=== PATIENT | male | born 1980 | race Caucasian/White ===

== ENCOUNTER 2020-01-03 09:00 | Outpatient (CLI) | payer OTHER, SELFPAY ==
[2020-01-03 09:50] LABS: Alanine Aminotransferase 15 U/L (4-50); Albumin Level 4.1 g/dL (3.5-5.1); Alkaline Phosphatase 101 U/L (38-126); Aspartate Amino Transferase 19 U/L (17-59); Bilirubin,Total 0.3 mg/dL (0.2-1.3)
== END 2020-01-03 09:01 | disposition home or self-care (01) ==
PROVIDERS: Visit Provider Internal Medicine Nephrology
DX: N18.30 Chronic kidney disease, stage 3 unspecified (principal); Q61.2 Polycystic kidney, adult type
CPT/HCPCS: 36415; 80076

== ENCOUNTER 2022-03-20 08:16 | Outpatient (CLI) | payer BC, SELFPAY ==
--- NOTE | 2022-04-01 14:52 | WPDHOMESLEEP ---
Sleep Study - Home Unattended Date of Study: 03/20/22 Ordering Provider: KARMEN Garcia Interpreting Provider: Brenda Burks, DO Home Sleep Study Type: Apnea Link Air Height: 1.96 m Weight: 113.398 kg Body Mass Index: 29.6 Neck Circumference (inches): 17 [place]: 10 Reason for Sleep Study Poor sleep Sleep History The patient is a 41-year-old male with hypertension, GERD, polycystic kidney disease, stage 3 chronic kidney disease, obesity and tobacco use that had a sleep study ordered by primary care for evaluation of sleep apnea. The patient rarely awakens from sleep short of breath. He occasionally awakens at night with heartburn, belching or cough. He frequently snores and frequently loudly enough that others complain. He rarely has trouble sleeping when he has a cold. He rarely wakes up gasping for air throughout the night. He rarely has breathing problems at night observed by himself or others. He occasionally sweats excessively at night. He occasionally has heart palpitations or irregular heartbeats during the night. He denies falling asleep during the day and while driving. He denies sleep paralysis, cataplexy and hypnagogic / hypnopompic hallucinations. He denies having trouble at school or work due to sleepiness. He denies feeling afraid of going to sleep. He rarely has nightmares and rarely remembers his dreams. He rarely has thoughts racing through his mind. He rarely feels sad, depressed or anxious. He occasionally has muscular tension and occasionally notices parts of his body jerk. He occasionally kicks during the night. He occasionally experiences crawling and aching feelings in his legs but rarely has leg pain during the night. He denies grinding his teeth during sleep and denies awakening with morning jaw pain. He is occasionally bothered by pain during the day but rarely awakened by pain during the night. He occasionally wakes up feeling stiff in the morning. He rarely wakes up with sore or achy muscles. He occasionally wakes up with pain in the neck, spine or other joints. He goes to bed at 11:00 p.m. on both weekdays and weekends. It takes him 10-15 minutes to fall asleep. He wakes up 1-2 times throughout the night to urinate. He is able to fall back asleep within 10-15 minutes. He wakes up at 6:15 a.m. on weekdays and at 7:00 a.m. on the weekends. He typically gets 8-10 hours of sleep per night. He will stay in bed for a minute after waking up in the morning. He will consume caffeinated beverages within 2 hours of bedtime. He does not engage in physical exercise before bedtime. He will watch television before falling asleep. He will take naps in afternoon or the evening but they are not refreshing. He drinks 4-5 caffeinated beverages per day. He smokes 1.5 packs of cigarettes per day. He denies alcohol and recreational drug PMFSH Past Medical History Medical History Autosomal dominant adult polycystic kidney disease Hypertension Obesity Stage 3 chronic kidney disease Tobacco use Surgical History Surgical History H/O vasectomy H/O wisdom tooth extraction Family History Family History Father Family history of brain aneurysm Other History of blood in urine Social History Social History Smoking status: Current every day smoker Alcohol intake: current Substance use: unknown Medications Home Medications Medication Instructions Recorded Confirmed Type cholecalciferol (vitamin D3) 50 50 mcg PO DAILY 01/02/22 01/30/22 History mcg (2,000 unit) capsule irbesartan 150 mg tablet 150 mg PO DAILY 01/02/22 01/30/22 History eszopiclone 2 mg tablet (Lunesta) 2 mg PO ONCE #1 tablet 01/30/22 01/30/22 Rx ezetimibe 10 mg tablet 10 mg PO DAILY #30 tabs 04/01/22 Rx Sleep Procedure This
[2022-04-01 15:01] VITALS: BMI 29.6
--- NOTE | 2022-05-29 15:42 | SLEEP ---
new calls [phone]
== END 2022-03-21 13:34 | disposition home or self-care (01) ==
LOC: ANHCSM 08:17
PROVIDERS: Visit Provider Physician Assistant
DX: G47.10 Hypersomnia, unspecified (principal); G47.9 Sleep disorder, unspecified
CPT/HCPCS: 95806

== ENCOUNTER 2022-05-22 08:17 | Outpatient (CLI) | payer BC, SELFPAY ==
--- NOTE | 2022-06-20 15:16 | WPDSLEEPSTUD ---
Sleep Study Date of Study: 05/22/22 Ordering Provider: KARMEN Garcia Interpreting Physician: Isha Ferguson MD Sleep Study Type: Polysomnogram Height: 1.96 m Weight: 113.398 kg Body Mass Index: 29.6 Neck Circumference (inches): 17 [place]: 10 Reason for Sleep Study Poor quality sleep, wakes up feeling tired Sleep History Dougie Blackburn is a 42-year-old man who has frequent nighttime awakening. He does not awaken from sleep feeling short of breath. He occasionally awakens at night with heartburn, belching or coughing. He frequently snores loudly enough that others complain. He frequently has trouble sleeping if he has a cold. he rarely wakes up gasping for breath at night. He rarely has breathing problems at night observed by others. He rarely sweats excessively at night. He occasionally notices his heart pounding or beating irregularly at night. He rarely falls asleep during the day. He does not fall asleep involuntarily or while driving. Does not have loss of muscle tone with strong emotion. He does not have daytime difficulties due to excessive sleepiness. 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 He does not feel paralyzed on waking or falling asleep. He does not have vivid dreamlike scenes on waking or falling asleep. He does not feel afraid to go to sleep. He does not have nightmares. He rarely remembers his dreams. He rarely has racing thoughts. He occasionally feels sad or depressed. He rate rarely has anxiety or muscular tension. He occasionally notices parts of body jerking. He occasionally kicks at night. He occasionally has crawling and aching feelings in his legs. He rarely has any kind of leg pain at night. He does not have morning jaw pain and does not grind his teeth during sleep. He occasionally is bothered by pain during the day. He is not awakened by pain at night. He occasionally wakes up feeling stiff in the morning with sore achy muscles or pain in the neck and spine. Normal bedtime is 10:00 p.m., falling asleep within 10 minutes. He typically wakes 3-6 times during the night to use the bathroom. It takes him 10-15 minutes to return to sleep. He wakes the morning at 6:00 a.m.. Weekend schedule is the same. He estimates getting between 6 and 8 hours of sleep at night. He takes naps on the weekend. He generally does not take naps in the afternoon or evening. He does not feel refreshed after short nap. He is drowsy for an hour after waking. He feels better in the afternoon compared to other times of day. Habits: Tobacco 1 and half packs per day. Caffeine 3-4 servings a day. No alcohol or recreational substances. [facility] Past Medical History Medical History Autosomal dominant adult polycystic kidney disease Hypertension Obesity Stage 3 chronic kidney disease Tobacco use Surgical History Surgical History H/O vasectomy H/O wisdom tooth extraction Family History Family History Father Family history of brain aneurysm Other History of blood in urine Social History Social History Smoking status: Heavy tobacco smoker Alcohol intake: current Substance use: unknown Lack of Transportation: No Lack of Food: Never True Current Housing: I Have Housing Concerned About Future Housing: No Difficulty Paying Gas/Electric Bills: No Difficulty Paying for Meds: No Currently Unemployed: No Education: Associate Degree Difficulty w/ Childcare or Family Care: No Gender identity (if verbalized by the patient): Male Medications Home Medications Medication Instructions Recorded Confirmed Type cholecalciferol (vitamin D3) 50 50 mcg PO DAILY 01/02/22 01/30/22 History mcg (2,000 unit) capsule irbesartan 150 mg tablet 150 mg PO DAILY 01/02/22 01/30/22 History eszopiclone 2 mg tablet (Lunesta) 2 mg PO ONCE #1 table
[2022-06-20 15:32] VITALS: BMI 29.6
== END 2022-05-23 09:09 | disposition home or self-care (01) ==
LOC: ANHCSM 08:18
PROVIDERS: Visit Provider Physician Assistant
DX: G47.10 Hypersomnia, unspecified (principal); G47.33 Obstructive sleep apnea (adult) (pediatric)
CPT/HCPCS: 95810

== ENCOUNTER 2022-08-10 06:42 | Inpatient (IN) | payer OTHER, SELFPAY ==
[2022-08-10] VITALS (11 sets, daily range): BP systolic 115–127; BP diastolic 63–93; PULSE 72–88; RESP 16–18; TEMP 36.6–36.9; O2SAT 99–100; BMI 26.5
--- NOTE | ~2022-08-10 | US_ITS ---
EXAMINATION: US retroperitoneal comp DATE: 08/13/2022 11:24 INDICATION: Left kidney hematoma. TECHNIQUE: Multiple ultrasound grayscale images of the kidneys were obtained. COMPARISON: CT abdomen and pelvis 08/10/2022 FINDINGS: The right kidney measures 14.9 x 6.0 x 6.7 cm. The left kidney measures 16.5 x 12.2 x 10.0 cm. There are innumerable cysts in each kidney. The left kidney, there is a 4.6 cm hypoechoic mass. There is no hydronephrosis. The bladder is normal. IMPRESSION: 1. Polycystic kidney disease. 2. 4.6 cm left kidney mass, most likely a hemorrhagic cyst. Neoplasm cannot be excluded. Consider abd omen MRI without and with contrast. Reviewed, dictated and finalized at location L. IMPRESSION: 1. Polycystic kidney disease. 2. 4.6 cm left kidney mass, most likely a hemorrhagic cyst. Neoplasm cannot be excluded. Consider abdomen MRI without and with contrast.
--- NOTE | ~2022-08-10 | CT_ITS ---
EXAMINATION: CT abdomen pelvis wo con DATE: 08/10/2022 08:28 INDICATION: Left flank pain. Polycystic kidney disease. TECHNIQUE: Computed tomography (CT) of the abdomen and pelvis was performed without intravenous contr ast. Automated exposure control and iterative reconstruction technique were employed. The dose-length product was 981.49 mGy-cm. COMPARISON: None. FINDINGS: The visualized portions of the lung bases demonstrate minimal atelectasis. No pleural effus ion. The heart size is normal. No pericardial effusion. Pectus excavatum is noted. The liver, gallbla dder, spleen, pancreas, and adrenal glands are normal. There is a small sliding hiatal hernia. Right kidney measures 25.0 x 12.1 x 8.4 cm. Left kidney measures 28.9 x 15.9 x 13.2 cm. There are innumerab le cysts and hemorrhagic cysts in the kidneys. There are parenchymal calcifications in the kidneys bi laterally. There is hematoma in a calyx of left kidney. There are bilateral inguinal hernias containi ng fat. There is diverticulosis of the colon without evidence of diverticulitis. There are no dilated loops of bowel. The appendix is normal. There is mild left para-aortic lymphadenopathy. There is no free intraperitoneal fluid. There is mild thoracolumbar spondylosis. IMPRESSION: 1. Acute hematoma in a calyx of left kidney. 2. Polycystic kidney disease. 3. Mild left para-aortic lymphadenopathy, likely reactive. Reviewed, dictated and finalized at location A.
--- NOTE | 2022-08-10 07:27 | ED.MALEGU ---
HPI - Male Genitourinary General Chief complaint: Urogenital-Male Stated complaint: blood in urine, left flank pain Time Seen by Provider: 08/10/22 07:26 Source: patient and family Mode of arrival: ambulatory Limitations: no limitations History of Present Illness HPI Narrative: Left flank pain for the last 2 weeks plus hematuria. Was seen by his crop or grain farmworker 1 day prior to the beginning of his symptoms. The above symptoms associated with nausea and chills. And decreased p.o. intake. Patient been taking Tylenol since. History of persistent kidney disease. He denies any fever. Patient reported having intermittent similar symptoms in the past but usually does not last longer as this time. History of hypertension, hyperlipidemia, coronary stents patient on aspirin and Brilinta. He smokes, denies drinking or using drugs. Related Data Home Medications Medication Instructions Recorded Confirmed aspirin 81 mg chewable tablet 81 mg PO DAILY 07/29/22 07/29/22 atorvastatin 80 mg tablet 80 mg PO QHS 07/29/22 07/29/22 metoprolol succinate 25 mg 12.5 mg PO BID 07/29/22 07/29/22 tablet,extended release 24 hr omeprazole 20 mg capsule,delayed 20 mg PO DAILY 07/29/22 07/29/22 release ticagrelor 90 mg tablet 90 mg PO Q12H 07/29/22 07/29/22 cholecalciferol (vitamin D3) 125 125 mcg PO DAILY 08/10/22 mcg (5,000 unit) tablet Allergies Allergy/AdvReac Type Severity Reaction Status Date / Time No Known Allergies Allergy Verified 08/10/22 07:12 Review of Systems Review of Systems: All systems reviewed & are unremarkable except as noted in HPI and below PMFSH Past Medical History Medical History Autosomal dominant adult polycystic kidney disease Hypertension Obesity Stage 3 chronic kidney disease Tobacco use Surgical History Surgical History H/O vasectomy H/O wisdom tooth extraction Family History Family History Father Family history of brain aneurysm Other History of blood in urine Social History Social History Smoking status: Heavy tobacco smoker Alcohol intake: current Substance use: unknown Lack of Transportation: No Lack of Food: Never True Current Housing: I Have Housing Concerned About Future Housing: No Difficulty Paying Gas/Electric Bills: No Difficulty Paying for Meds: No Currently Unemployed: No Education: Associate Degree Difficulty w/ Childcare or Family Care: No Gender identity (if verbalized by the patient): Male Exam Narrative: General appearance: Well-developed, well-nourished, sick looking Skin: Pale Head: Normocephalic, nontraumatic Eyes: Clear conjunctiva ENT: Oropharynx normal, ears normal, nose normal Neck: Supple, nontender Chest and respiratory: Airway patent, no respiratory distress, no accessory muscle use Heart: Regular rate/rhythm Abdomen: Soft, severe tenderness left flank and left abdomen Vascular: Normal peripheral pulses, normal capillary refill. Musculoskeletal: Normal range of motion, nontender back Neurologic: Alert and oriented ?3, DROP MACHINE OPERATOR is normal as tested, no gross motor deficit Course Reevaluation(s) Reevaluation #1: Feeling a little better after IV fluid, Dilaudid and Zofran IV. Date: 08/10/22 Time: 11:17 Vital Signs Vital signs: Vital Signs Pulse Rate 88 08/10/22 07:09 Respiratory Rate 16 08/10/22 07:09 Blood Pressure 127/93 H 08/10/22 07:09 Pulse Oximetry 100 08/10/22 07:09 Oxygen Delivery Room Air 08/10/22 07:09 Pulse Rate 79 08/10/22 11:02 Respiratory Rate
[2022-08-10 07:39] LABS: Basophils Absolute Auto 0.1 K/mm3 (0.0-0.1); Basophils Percent Auto 0.3 % (0.2-1.2); Eosinophils Absolute Auto 0.2 K/mm3 (0-0.3); Hematocrit 37.2 % (42.0-52.0); Hemoglobin 12.1 g/dL (14.0-18.0); Immature Granulocyte Absolute 0.14 K/mm3 (0.00-0.031); Immature Granulocyte Percent A 0.8 % (0-0.5); Lymphocytes Absolute Auto 0.87 K/mm3 (0.9-3.2); Mean Corpuscular HGB Conc 32.5 g/dl (32-36); Mean Corpuscular Hemoglobin 30.3 pg (26-34); Mean Corpuscular Volume 93.2 fl (80-100); Mean Platelet Volume 10.7 fl (7.4-10.4); Neutrophils Percent Auto 86.9 % (45.5-73.1); Platelet Count Result 429 k/mm3 (150-375); Red Blood Count 3.99 M/mm3 (4.6-6.20); Red Cell Distribution Width 13.8 % (11.5-14.5); White Blood Count 17.3 K/mm3 (4.5-10.0)
[2022-08-10 07:54] LABS: Alanine Aminotransferase 27 U/L (6-50); Alkaline Phosphatase 135 U/L (38-126); Anion Gap 12 mmol/L (8-16); Aspartate Amino Transferase 29 U/L (17-59); Bilirubin,Total 0.7 mg/dL (0.2-1.3); Blood Urea Nitrogen 47 mg/dL (9-20); Calcium 9.2 mg/dL (8.4-10.2); Carbon Dioxide 25 mmol/L (22-30); Chloride 98 mmol/L (98-107); Estimated CRCL calculation 30 ml/min; Estimated Glomerular Filt Rate 18; Glucose 168 mg/dL (65-110); Lipase 136 U/L (23-300); Potassium 3.4 mmol/L (3.4-5.0); Sodium 135 mmol/L (137-145)
[2022-08-10] MEDS: SODIUM CHLORIDE 0.9% IV 1,000 ML 999 ML IV CONT ×2 (08:21→14:54)
[2022-08-10] MEDS: ONDANSETRON INJ 4 MG/2 ML VIAL IV PUSH ×2 (08:21→17:49)
[2022-08-10] MEDS: HYDROmorphone HCL INJ (*CRX) 1 MG/ML SYR 0.5 MG IV PUSH ×4 (08:21→22:37)
[2022-08-10 08:26] LABS: Add Urine Microscopic? YES
[2022-08-10 08:33] LABS: Bacteria Urine 1+ /hpf; Bilirubin Urine 2+ (Negative); Leukocyte Esterase Ur 1+ LEU/UL (Negative); RBC Urine >100 /hpf (0-2); Squamous Epithelial Cell Urine Few /hpf (Few); Urobilinogen Urine 0.2 mg/dL (<2.0); WBC Urine 51-100 /hpf (0-3)
[2022-08-10 08:34] LABS: Appearance Urine Turbid (Clear); Blood Urine 3+ (Negative); Glucose Urine UA Negative (Negative); Ketones Urine Negative (Negative); Nitrate Urine Positive (Negative); Protein Urine 3+ mg/dL (Negative); Specific Grav Ur 1.025 (1.001-1.035)
[2022-08-10 08:51] LABS: Color Urine Red (Yellow)
[2022-08-10] MEDS: SODIUM CHLORIDE 0.9% IV 1,000 ML 100 ML IV CONT (13:16)
--- NOTE | 2022-08-10 13:19 | ADMGEN ---
This patient, Dougie Blackburn, was admitted to 2 Medical Room 240-01. Patient/family oriented to hospital policies and general routines including ID bracelet, bed and alarms, visiting hours, pain management, procedures, bathroom and other care routines, personal items, smoking policy, room service/diet, and visiting hours. Information on how to activate the Rapid Response Team has been discussed. Patient/Family are encouraged to report perceived risks to care and to ask questions if they do not understand what they are told or what they should do. Report received from [facility] in ED.
[2022-08-10 14:48] LABS: Hematocrit 32.7 % (42.0-52.0); Hemoglobin 10.4 g/dL (14.0-18.0)
--- NOTE | 2022-08-10 15:06 | PM.IMHP ---
H&P: HPI History of Present Illness Date/Time: 08/10/22 15:06 Chief Complaint: blood in urine Narrative: This is a 42-year-old male patient who has a history of polycystic kidney disease. The patient had a STEMI the 1st week of July. He received a stent at that time that sounds like it may have been the LAD. The patient has been on dual therapy with aspirin and Brilinta. The patient has been complaining of having left flank pain with hematuria for the last 2 weeks. He does have chronic kidney disease 3B and has been seeing Dr. Ram. The patient was seen by his brick setter 1 day prior to beginning of his symptoms. He also has nausea and chills. He had decreased oral intake. The patient did take Tylenol but he stated that it did not relieve his discomfort. He rates his pain a 6-7. His H&H is 10.4 and 32.7. Platelets 429. Patient's creatinine is 3.8 BUN 47 and his GFR is 30. His urine is turbid 3 blood bout 3+ positive nitrate 2+ bilirubin. abdominal pelvis CT was read as a following 1. Acute hematoma in a calyx of left kidney. 2. Polycystic kidney disease. 3. Mild left para-aortic lymphadenopathy, likely reactive. nephrology has been consulted. The patient was given a dose of Rocephin and Dilaudid in the emergency . The patient stated that the Dilaudid helps somewhat but did not relieve his pain totally. The patient's blood pressure below-knee was given IV fluids in the emergency room. When the patient came up to be admitted on the nursing floor he was given another bolus of normal saline. The patient is being admitted to inpatient status on the date of service of 08/10/2022. Review of Systems Review of Systems: All systems reviewed & are unremarkable except as noted in HPI and below Constitutional: Constitutional: Reports as per HPI and Reports no additional constitutional complaints Eyes: Eyes: Reports as per HPI and Reports no additional eye complaints ENT: Reports system reviewed and no additional complaints, except as documented and Reports Normal hearing present Cardiovascular: Cardiovascular: Reports no additional cardiovascular complaints Respiratory: Respiratory: Reports no additional respiratory complaints and Reports no additional respiratory complaints Gastrointestinal: Gastrointestinal: Reports as per HPI and Reports no additional gastrointestinal complaints Musculoskeletal: Musculoskeletal: Reports no additional musculoskeletal complaints Integumentary/Breasts: Skin/Breast: Reports system reviewed and no additional complaints, except as docu and Reports as per HPI Neurologic: Reports system reviewed and no additional complaints, except as documented, Reports as per HPI and Reports Normal hearing present Psychiatric: Psychiatric: Reports no additional psychiatric complaints and Reports as per HPI Endocrine: Endocrine: Reports no additional endocrine complaints Hematologic/Lymphatic: Hematologic/Lymphatic: Reports no additional hematologic/lymphatic complaints Allergic/Immunologic: Allergic/Immunologic: Reports no additional allergic/immunologic complaints [facility] Past Medical History Medical History Autosomal dominant adult polycystic kidney disease CAD (coronary artery disease) History of ST elevation myocardial infarction (STEMI) Hyperlipidemia, unspecified Hypertension Obesity Obstructive sleep apnea Stage 3 chronic kidney disease 3B Tobacco use Surgical History Surgical History (Updated 08/10/22 @ 15:50 by Patria Vicente NP) H/O vasectomy H/O wisdom tooth extraction History of coronary artery stent placement possibly LAD Family History Family History (Updated 08/10/22 @ 13:31 by Shanika Garcia RN) Father Family history of brain aneurysm Hypertension Other History of blood in urine Social History Social History (Updated 08/10/22 @ 15:51 by Patria Vicente NP) Social History: the patient is and has 1 biological child. He has 1 stepchild as well. The pa
--- NOTE | 2022-08-10 15:27 | PC.NURSE ---
Breakdown Worker went through Ceci Nieves's ([place]) charting and agree with assessments findings
[2022-08-10 17:28] LABS: Hemoglobin A1C 5.6 % (<5.7)
[2022-08-10] MEDS: METOPROLOL SUCCINATE EXT REL 12.5 MG TABCR PO (17:48)
[2022-08-10] MEDS: NICOTINE (*PBKC) 21 MG PATCH 1 PATCH TRANSDERM (17:51)
[2022-08-10] MEDS: TICAGRELOR 90 MG TABLET PO (20:27)
[2022-08-10] MEDS: ACETAMINOPHEN 325 MG TABLET 650 MG PO (20:27)
[2022-08-10] MEDS: ATORVASTATIN 40 MG TABLET 80 MG PO (20:27)
[2022-08-10 20:42] LABS: Hematocrit 30.5 % (42.0-52.0)
[2022-08-10 21:11] LABS: Creatinine Urine 67.2 mg/dL; Total Protein Urine Random 177 mg/dL; Ur Ttl Prot Creatinine Ratio 2.63 mg/mg (0-0.20); Urea Random Urine 473 MG/DL
[2022-08-10 21:23] LABS: Sodium Urine Random 19 meq/L
[2022-08-10 21:38] LABS: Eosinophil Urine None Seen % (None Seen); Urine Eos QC 2nd Tech Confirmed
[2022-08-11] VITALS (18 sets, daily range): BP systolic 115–134; BP diastolic 56–79; PULSE 72–93; RESP 16–18; TEMP 36.3–37; O2SAT 96–100
[2022-08-11] MEDS: SODIUM CHLORIDE 0.9% IV 1,000 ML 100 ML IV CONT ×3 (00:45→22:58)
--- NOTE | 2022-08-11 00:52 | ECG_ITS ---
Measurements Intervals [place] Rate: 79 P: 45 NH: 149 QRS: 28 QRSD: 93 T: 2 QT: 377 QTc: 433 Interpretive Statements SINUS RHYTHM DELAYED PRECORDIAL R/S TRANSITION BORDERLINE ST-T WAVE ABNORMALITY- INFERIOR LEADS BORDERLINE ECG NO PREVIOUS ECG AVAILABLE FOR COMPARISON Electronically Signed On 08-11-2022 7:05:00 CDT by Ed Rodriguez D.O.
[2022-08-11] MEDS: NITROGLYCERIN SL 0.4 MG TABLET SUBLINGUAL ×3 (02:15→03:14)
[2022-08-11 02:34] LABS: Basophils Percent Auto 0.3 % (0.2-1.2); Eosinophils Absolute Auto 0.2 K/mm3 (0-0.3); Eosinophils Percent Auto 1.2 % (0-4.4); Hematocrit 29.4 % (42.0-52.0); Hemoglobin 9.4 g/dL (14.0-18.0); Immature Granulocyte Percent A 0.7 % (0-0.5); Lymphocytes Percent Auto 5.6 % (18.3-44.2); Mean Corpuscular Hemoglobin 30.2 pg (26-34); Mean Corpuscular Volume 94.5 fl (80-100); Mean Platelet Volume 9.8 fl (7.4-10.4); Monocytes Absolute Auto 1.1 K/mm3 (0.1-0.6); Monocytes Percent Auto 7.9 % (2.6-8.5); Neutrophils Percent Auto 84.3 % (45.5-73.1); Platelet Count Result 358 k/mm3 (150-375); Red Blood Count 3.11 M/mm3 (4.6-6.20); Red Cell Distribution Width 14.2 % (11.5-14.5); White Blood Count 14.3 K/mm3 (4.5-10.0)
[2022-08-11 03:00] LABS: Alanine Aminotransferase 21 U/L (6-50); Alkaline Phosphatase 107 U/L (38-126); Anion Gap 8 mmol/L (8-16); Aspartate Amino Transferase 27 U/L (17-59); Bilirubin,Total 0.5 mg/dL (0.2-1.3); Blood Urea Nitrogen 40 mg/dL (9-20); Calcium 7.9 mg/dL (8.4-10.2); Carbon Dioxide 23 mmol/L (22-30); Chloride 105 mmol/L (98-107); Creatine Kinase 41 U/L (55-170); Estimated CRCL calculation 36 ml/min; Estimated Glomerular Filt Rate 22; Glucose 99 mg/dL (65-110); Potassium 3.8 mmol/L (3.4-5.0); Sodium 136 mmol/L (137-145)
[2022-08-11 03:01] LABS: Lactic Acid Reflex 0.6 mmol/L (0.7-2.0)
[2022-08-11 04:06] LABS: Troponin I < 0.012 ng/mL (0.000-0.034)
[2022-08-11] MEDS: ACETAMINOPHEN 325 MG TABLET 650 MG PO ×3 (07:24→16:06)
[2022-08-11] MEDS: ASPIRIN 81 MG CHEWABLE TABLET PO (08:33)
[2022-08-11] MEDS: METOPROLOL SUCCINATE EXT REL 12.5 MG TABCR PO ×2 (08:34→17:58)
[2022-08-11] MEDS: EZETIMIBE 10 MG TABLET PO (08:34)
[2022-08-11] MEDS: CHOLECALCIFEROL 1,000 UNITS TABLET 5000 UNITS PO (08:34)
[2022-08-11] MEDS: TICAGRELOR 90 MG TABLET PO ×2 (08:35→20:54)
[2022-08-11] MEDS: NICOTINE (*PBKC) 21 MG PATCH 1 PATCH TRANSDERM (08:35)
--- NOTE | 2022-08-11 10:00 | PC.NURSE ---
Day Trader reviewed Ceci Nieves's ([place]) charting and agrees with assessment findings
--- NOTE | 2022-08-11 11:28 | PM.CNNEP ---
Assessment and Plan Assessment and plan (1) CARLOS (acute kidney injury): Code(s): N17.9 - Acute kidney failure, unspecified Status: Acute Assessment and Plan: multifactorial: suspected pyelonephritis hematoma in kidney relative hypotension prerenal factors evaluation to date: CT of A/P results noted urine eosinophils negative CPK okay urine electrolytes suggest prerenal azotemia improvement noted with current interventions follow repeat labs and UOP (2) Chronic kidney disease, stage 3b: Code(s): N18.32 - Chronic kidney disease, stage 3b Status: Chronic Assessment and Plan: baseline creatinine was running ~ 2.3 - 2.7mg/dl in the last year (2021) however, more recently (last few months), creatinine was higher at 2.9mg/dl element of CKD progression versus current issues playing a role?? related to recent issues/findings of CAD?? CKD secondary to polycystic kidney disease (3) Acute pyelonephritis: Code(s): N10 - Acute pyelonephritis Status: Acute Assessment and Plan: suspected based on history and testing on admission follow culture data on antibiotics pain control IVFs as tolerated (4) CAD (coronary artery disease): Code(s): I25.10 - Atherosclerotic heart disease of [place] coronary artery without angina pectoris Status: Acute Assessment and Plan: recent STEMI with stenting on ASA and brilinta (5) Hypertension: Code(s): I10 - Essential (primary) hypertension Status: Chronic Assessment and Plan: well controlled at this time follow trend of hemodynamics (6) Anemia: Code(s): D64.9 - Anemia, unspecified Status: Acute Assessment and Plan: likely related to CKD and issues with hematuria however, recent need for blood thinners (due to STEMI) may be playing a role as well follow trend of H/H I will continue to follow the patient with you while he Nanette hospitalized and make further recommendations during his hospital course. Thank you for allowing me to participate in care this patient. History of Present Illness Reason for Consult Consult date: 08/11/22 Reason for consult: acute renal failure (on chronic kidney disease) Chief Complaint Chief complaint: Pyelonephritis/Hematuria/Kidney Hematoma/CARLOS/Polyc History of Present Illness Narrative: The patient is a 42-year-old male with a past medical history as outlined below who presented to [facility] Emergency room due to complaints of significant left flank pain in association with hematuria. He has been having these symptoms for approximately the last 2 weeks. He had eased see his customer support associate, Dr. Ram about a day before the symptoms progressively worsened. At that time, he ordered a UA and urine culture and apparently, these results only demonstrated the a for mention hematuria but no evidence of infection. Unfortunately, as already mentioned, his symptoms continued to progress in association with nausea, chills, as well as poor oral intake. He use Tylenol as well as a heating pad to try and help with the left flank pain but these interventions were unsuccessful. It should be noted that earlier this month he was hospitalized for a S STEMI and underwent cardiac catheterization as well as stent placement. As his pain continued to worsen in association with the hematuria, he came to the emergency room for further assessment. Workup and evaluation in the emergency room demonstrated the patient to be hemodynamically stable but in mild distress secondary to his left flank pain. Routine blood test demonstrated labs consistent with his known history of chronic kidney disease although his BUN and creatinine were elevated above his baseline. His CBC was noteworthy for an elevated white blood cell count as well as relative anemia. His urinalysis was significant for blood, nitrate, and bilirubin is sorry f
--- NOTE | 2022-08-11 11:28 | P.CONNP_ITS ---
Assessment and Plan Assessment and plan (1) CARLOS (acute kidney injury): Code(s): N17.9 - Acute kidney failure, unspecified Status: Acute Assessment and Plan: * multifactorial: * suspected pyelonephritis * hematoma in kidney * relative hypotension * prerenal factors * evaluation to date: * CT of A/P results noted * urine eosinophils negative * CPK okay * urine electrolytes suggest prerenal azotemia * improvement noted with current interventions * follow repeat labs and UOP (2) Chronic kidney disease, stage 3b: Code(s): N18.32 - Chronic kidney disease, stage 3b Status: Chronic Assessment and Plan: * baseline creatinine was running ~ 2.3 - 2.7mg/dl in the last year (2021) * however, more recently (last few months), creatinine was higher at 2.9mg/dl * element of CKD progression versus current issues playing a role?? * related to recent issues/findings of CAD?? * CKD secondary to polycystic kidney disease (3) Acute pyelonephritis: Code(s): N10 - Acute pyelonephritis Status: Acute Assessment and Plan: * suspected based on history and testing on admission * follow culture data * on antibiotics * pain control * IVFs as tolerated (4) CAD (coronary artery disease): Code(s): I25.10 - Atherosclerotic heart disease of [place] coronary artery without angina pectoris Status: Acute Assessment and Plan: * recent STEMI with stenting * on ASA and brilinta (5) Hypertension: Code(s): I10 - Essential (primary) hypertension Status: Chronic Assessment and Plan: * well controlled at this time * follow trend of hemodynamics (6) Anemia: Code(s): D64.9 - Anemia, unspecified Status: Acute Assessment and Plan: * likely related to CKD and issues with hematuria * however, recent need for blood thinners (due to STEMI) may be playing a role as well * follow trend of H/H I will continue to follow the patient with you while he [place] hospitalized and make further recommendations during his hospital course. Thank you for allowing me to participate in care this patient. History of Present Illness Reason for Consult Consult date: 08/11/22 Reason for consult: acute renal failure (on chronic kidney disease) Chief Complaint Chief complaint: Pyelonephritis/Hematuria/Kidney Hematoma/CARLOS/Polyc History of Present Illness Narrative: The patient is a 42-year-old male with a past medical history as outlined below who presented to [facility] Emergency room due to complaints of significant left flank pain in association with hematuria. He has been having these symptoms for approximately the last 2 weeks. He had eased see his hunter trapper, Dr. Ram about a day before the symptoms progressively worsened. At that time, he ordered a UA and urine culture and apparently, these results only demonstrated the a for mention hematuria but no evidence of infection. Unfortunately, as already mentioned, his symptoms continued to progress in association with nausea, chills, as well as poor oral intake. He use Tylenol as well as a heating pad to try and help with the left flank pain but these interventions were unsuccessful. It should be noted that earlier this month he was hospitalized for a S STEMI and underwent cardiac catheterization as well as stent placement. As his pain continued to worsen in association with the hematuria, he came to the emergency room for further assessment. Workup and evaluation in the emerge
--- NOTE | 2022-08-11 14:45 | P.PNIM_ITS ---
Progress Note: A&P Assessment and Plan (1) Acute pyelonephritis: Code(s): N10 - Acute pyelonephritis Status: Acute Assessment and Plan: * 08/03 a day 2 ceftriaxone * Culture and sensitivity pending (2) Hematuria: Code(s): R31.9 - Hematuria, unspecified Status: Acute Assessment and Plan: * Likely due to acute pyelonephritis, polycystic kidney disease, dual antiplatelet therapy * Continue DAPT due to recent coronary stent * Continue IV fluids (3) Closed hematoma of left kidney: Qualifiers: Encounter type: sequela Qualified Code(s): S37.012S - Minor contusion of left kidney, sequela Code(s): S37.012A - Minor contusion of left kidney, initial encounter Status: Acute Assessment and Plan: * Continue IV fluids (4) CARLOS (acute kidney injury): Code(s): N17.9 - Acute kidney failure, unspecified Status: Acute Assessment and Plan: * Likely due to acute pyelonephritis with possible volume depletion as well * Creatinine at admission 3.8, 08/11 3.1 * Continue IV fluids (5) PCK (polycystic kidney disease): Code(s): Q61.3 - Polycystic kidney, unspecified Status: Acute (6) Chronic kidney disease, stage 3b: Code(s): N18.32 - Chronic kidney disease, stage 3b Status: Chronic (7) CAD (coronary artery disease): Code(s): I25.10 - Atherosclerotic heart disease of [place] coronary artery without angina pectoris Status: Acute Assessment and Plan: * Chest discomfort overnight likely musculoskeletal * EKG, troponin, telemetry unremarkable * Continue home regimen * Continue to monitor (8) Anemia: Code(s): D64.9 - Anemia, unspecified Status: Acute Assessment and Plan: * Likely due to chronic kidney disease as well as acute hematuria * Continue to monitor (9) Tobacco use: Code(s): Z72.0 - Tobacco use Status: Acute Assessment and Plan: * Nicotine patch ordered Subjective Date/time seen: 08/11/22 14:45 Interval history: 42-year-old gentleman admitted 08/10 with hematuria and acute pyelonephritis. Recent [place] with stent on dual antiplatelet therapy. Had some chest discomfort overnight with negative EKG and troponin x1. No issues on telemetry. States it does not feel like his heart attack but more like ?a pulled muscle?. No associated symptoms. Worse with movement. Mild. Appetite fair. No abdominal pain or change in stools. No shortness of breath. No weakness or numbness. No other abnormal bleeding. Review of Systems Review of Systems: All systems reviewed & are unremarkable except as noted in HPI and below Exam Narrative: HEENT: PERRL, sclerae nonicteric, pharyngeal mucosa pink and intact NECK: No JVD CHEST: Clear to auscultation. Normal effort. HEART: NL S1/S2, regular, no murmur ABDOMEN: BS+, soft, nontender, no mass, no bruits EXTREMITIES: No cyanosis, edema, or clubbing NEUROLOGIC: CN intact and symmetric to inspection. MUSCULOSKELETAL: Tone symmetric. PSYCH: Alert. Oriented to person, place, and time. Affect flat. Objective Data Vital Signs Vital Signs: Vital Signs - 24 hr 08/10/22 15:16 08/10/22 16:04 08/10/22 17:48 Temperature 98.2 F Pulse Rate 75 72 Respiratory Rate 16 Blood Pressure 121/74 Pulse Oximetry 100 100 Oxygen Delivery Room Air 0
--- NOTE | 2022-08-11 14:45 | PM.IMPN ---
Progress Note: A&P Assessment and Plan (1) Acute pyelonephritis: Code(s): N10 - Acute pyelonephritis Status: Acute Assessment and Plan: 08/03 a day 2 ceftriaxone Culture and sensitivity pending (2) Hematuria: Code(s): R31.9 - Hematuria, unspecified Status: Acute Assessment and Plan: Likely due to acute pyelonephritis, polycystic kidney disease, dual antiplatelet therapy Continue DAPT due to recent coronary stent Continue IV fluids (3) Closed hematoma of left kidney: Qualifiers: Encounter type: sequela Qualified Code(s): S37.012S - Minor contusion of left kidney, sequela Code(s): S37.012A - Minor contusion of left kidney, initial encounter Status: Acute Assessment and Plan: Continue IV fluids (4) CARLOS (acute kidney injury): Code(s): N17.9 - Acute kidney failure, unspecified Status: Acute Assessment and Plan: Likely due to acute pyelonephritis with possible volume depletion as well Creatinine at admission 3.8, 08/11 3.1 Continue IV fluids (5) PCK (polycystic kidney disease): Code(s): Q61.3 - Polycystic kidney, unspecified Status: Acute (6) Chronic kidney disease, stage 3b: Code(s): N18.32 - Chronic kidney disease, stage 3b Status: Chronic (7) CAD (coronary artery disease): Code(s): I25.10 - Atherosclerotic heart disease of [place] coronary artery without angina pectoris Status: Acute Assessment and Plan: Chest discomfort overnight likely musculoskeletal EKG, troponin, telemetry unremarkable Continue home regimen Continue to monitor (8) Anemia: Code(s): D64.9 - Anemia, unspecified Status: Acute Assessment and Plan: Likely due to chronic kidney disease as well as acute hematuria Continue to monitor (9) Tobacco use: Code(s): Z72.0 - Tobacco use Status: Acute Assessment and Plan: Nicotine patch ordered Subjective Date/time seen: 08/11/22 14:45 Interval history: 42-year-old gentleman admitted 08/10 with hematuria and acute pyelonephritis. Recent CT with stent on dual antiplatelet therapy. Had some chest discomfort overnight with negative EKG and troponin x1. No issues on telemetry. States it does not feel like his heart attack but more like ?a pulled muscle?. No associated symptoms. Worse with movement. Mild. Appetite fair. No abdominal pain or change in stools. No shortness of breath. No weakness or numbness. No other abnormal bleeding. Review of Systems Review of Systems: All systems reviewed & are unremarkable except as noted in HPI and below Exam Narrative: HEENT: PERRL, sclerae nonicteric, pharyngeal mucosa pink and intact NECK: No JVD CHEST: Clear to auscultation. Normal effort. HEART: NL S1/S2, regular, no murmur ABDOMEN: BS+, soft, nontender, no mass, no bruits EXTREMITIES: No cyanosis, edema, or clubbing NEUROLOGIC: CN intact and symmetric to inspection. MUSCULOSKELETAL: Tone symmetric. PSYCH: Alert. Oriented to person, place, and time. Affect flat. Objective Data Vital Signs Vital Signs: Vital Signs - 24 hr 08/10/22 15:16 08/10/22 16:04 08/10/22 17:48 Temperature 98.2 F Pulse Rate 75 72 Respiratory Rate 16 Blood Pressure 121/74 Pulse Oximetry 100 100 Oxygen Delivery Room Air 08/10/22 19:26 08/10/22 20:00 08/10/22 21:50 Temperature 98.5 F 98.2 F Pulse Rate 84 77 Respiratory Rate 18 18 Blood Pressure 125/67 121/63 Pulse Oximetry 99 100 Oxygen Delivery Room Air 08/10/22 23:30 08/10/22 20:05 08/11/22 01:32 Temperature 98.4 F Pulse Rate 80 80 Respiratory Rate 18 Blood Pressure 115/65 Pulse Oximetry 99 99 Oxygen Delivery Room Air 08/11/22 02:34 08/11/22 01:15 08/11/22 02:57 Temperature 98.1 F Pulse Rate 82 83 84 Respiratory Rate 18 Blood Pressure 115/60 134/71 128/66 Pulse Oximetry 97 100 96 Oxygen Delivery 08/11/22 03:20 08/11
[2022-08-11] MEDS: oxyCODONE HCL (*CRX) 5 MG TAB IR PO ×2 (18:42→22:58)
[2022-08-11] MEDS: ATORVASTATIN 40 MG TABLET 80 MG PO (20:54)
[2022-08-12] VITALS (13 sets, daily range): BP systolic 119–146; BP diastolic 70–83; PULSE 73–96; RESP 16–20; TEMP 36.5–37.4; O2SAT 96–100
[2022-08-12] MEDS: oxyCODONE HCL (*CRX) 5 MG TAB IR PO ×5 (03:05→21:32)
[2022-08-12 04:34] LABS: Hematocrit 29.8 % (42.0-52.0); Hemoglobin 9.5 g/dL (14.0-18.0); Mean Corpuscular HGB Conc 31.9 g/dl (32-36); Mean Corpuscular Hemoglobin 30.3 pg (26-34); Mean Corpuscular Volume 94.9 fl (80-100); Mean Platelet Volume 10.5 fl (7.4-10.4); Platelet Count Result 406 k/mm3 (150-375); Red Blood Count 3.14 M/mm3 (4.6-6.20); Red Cell Distribution Width 14.2 % (11.5-14.5); White Blood Count 12.2 K/mm3 (4.5-10.0)
[2022-08-12 04:59] LABS: Anion Gap 9 mmol/L (8-16); Blood Urea Nitrogen 31 mg/dL (9-20); Calcium 8.1 mg/dL (8.4-10.2); Carbon Dioxide 21 mmol/L (22-30); Chloride 109 mmol/L (98-107); Estimated CRCL calculation 43 ml/min; Estimated Glomerular Filt Rate 27; Glucose 97 mg/dL (65-110); Phosphorus 3.9 mg/dL (2.5-4.5); Potassium 3.9 mmol/L (3.4-5.0); Sodium 139 mmol/L (137-145)
[2022-08-12] MEDS: ACETAMINOPHEN 325 MG TABLET 650 MG PO ×3 (05:46→16:16)
[2022-08-12] MEDS: CHOLECALCIFEROL 1,000 UNITS TABLET 5000 UNITS PO (08:50)
[2022-08-12] MEDS: ASPIRIN 81 MG CHEWABLE TABLET PO (08:50)
[2022-08-12] MEDS: METOPROLOL SUCCINATE EXT REL 12.5 MG TABCR PO ×2 (08:51→16:17)
[2022-08-12] MEDS: NICOTINE (*PBKC) 21 MG PATCH 1 PATCH TRANSDERM (08:51)
[2022-08-12] MEDS: EZETIMIBE 10 MG TABLET PO (08:51)
[2022-08-12] MEDS: TICAGRELOR 90 MG TABLET PO ×2 (08:51→20:39)
[2022-08-12] MEDS: SODIUM CHLORIDE 0.9% IV 1,000 ML 100 ML IV CONT ×2 (08:52→21:33)
--- NOTE | 2022-08-12 11:18 | P.PN_ITS ---
Progress Note: A&P Assessment and Plan (1) Acute pyelonephritis: Code(s): N10 - Acute pyelonephritis Status: Acute Assessment and Plan: * 08/03 a day 2 ceftriaxone * Culture and sensitivity pending 08/12/2022 interval history: 42-year-old gentleman admitted 08/10 with hematuria and acute pyelonephritis. blood and urine culture no growth so far, Recent [place] with stent on dual antiplatelet therapy. patient Hgb remains stable. on Had some chest discomfort overnight with negative EKG and troponin x1. No issues on telemetry. States it does not feel like his heart attack but more lik e ?a pulled muscle?. No associated symptoms. Worse with movement. Mild. Appetite fair. No abdominal pain or change in stools. No shortness of breath. No weakness or numbness. No other abnormal bleeding. (2) Hematuria: Code(s): R31.9 - Hematuria, unspecified Status: Acute Assessment and Plan: * Likely due to acute pyelonephritis, polycystic kidney disease, dual antiplatelet therapy * Continue DAPT due to recent coronary stent * Continue IV fluids (3) Closed hematoma of left kidney: Qualifiers: Encounter type: sequela Qualified Code(s): S37.012S - Minor contusion of left kidney, sequela Code(s): S37.012A - Minor contusion of left kidney, initial encounter Status: Acute Assessment and Plan: * Continue IV fluids (4) CARLOS (acute kidney injury): Code(s): N17.9 - Acute kidney failure, unspecified Status: Acute Assessment and Plan: * Likely due to acute pyelonephritis with possible volume depletion as well * Creatinine at admission 3.8, 08/11 3.1 * Continue IV fluids (5) PCK (polycystic kidney disease): Code(s): Q61.3 - Polycystic kidney, unspecified Status: Acute (6) Chronic kidney disease, stage 3b: Code(s): N18.32 - Chronic kidney disease, stage 3b Status: Chronic (7) CAD (coronary artery disease): Code(s): I25.10 - Atherosclerotic heart disease of [place] coronary artery without angina pectoris Status: Acute Assessment and Plan: * Chest discomfort overnight likely musculoskeletal * EKG, troponin, telemetry unremarkable * Continue home regimen * Continue to monitor (8) Anemia: Code(s): D64.9 - Anemia, unspecified Status: Acute Assessment and Plan: * Likely due to chronic kidney disease as well as acute hematuria * Continue to monitor (9) Tobacco use: Code(s): Z72.0 - Tobacco use Status: Acute Assessment and Plan: * Nicotine patch ordered Subjective Date/time seen: 08/12/22 11:18 Interval history: 08/12/2022 interval history: 42-year-old gentleman admitted 08/10 with hematuria and acute pyelonephritis. blood and urine culture no growth so far, Recent [place] with stent on dual antiplatelet therapy. patient Hgb remains stable. on Had some chest discomfort overnight with negative EKG and troponin x1. No issues on telemetry. States it does not feel like his heart attack but more like ?a pulled muscle?. No associated symptoms. Worse with movement. Mild. Appetite fair. No abdominal pain or change in stools. No shortness of breath. No weakness or numbness. No other abnormal bleeding. Review of Systems Review of Systems: All systems reviewed & are unremarkable except as noted in HPI and below Exam Narrative: Patient is comfortable, NAD HEENT: eyes are clear and none icteric LUNGS: Normal respiratory effort ABD: Distende
--- NOTE | 2022-08-12 11:18 | WPDPN ---
Progress Note: A&P Assessment and Plan (1) Acute pyelonephritis: Code(s): N10 - Acute pyelonephritis Status: Acute Assessment and Plan: 08/03 a day 2 ceftriaxone Culture and sensitivity pending 08/12/2022 interval history: 42-year-old gentleman admitted 08/10 with hematuria and acute pyelonephritis. blood and urine culture no growth so far, Recent [place] with stent on dual antiplatelet therapy. patient Hgb remains stable. on Had some chest discomfort overnight with negative EKG and troponin x1. No issues on telemetry. States it does not feel like his heart attack but more like ?a pulled muscle?. No associated symptoms. Worse with movement. Mild. Appetite fair. No abdominal pain or change in stools. No shortness of breath. No weakness or numbness. No other abnormal bleeding. (2) Hematuria: Code(s): R31.9 - Hematuria, unspecified Status: Acute Assessment and Plan: Likely due to acute pyelonephritis, polycystic kidney disease, dual antiplatelet therapy Continue DAPT due to recent coronary stent Continue IV fluids (3) Closed hematoma of left kidney: Qualifiers: Encounter type: sequela Qualified Code(s): S37.012S - Minor contusion of left kidney, sequela Code(s): S37.012A - Minor contusion of left kidney, initial encounter Status: Acute Assessment and Plan: Continue IV fluids (4) CARLOS (acute kidney injury): Code(s): N17.9 - Acute kidney failure, unspecified Status: Acute Assessment and Plan: Likely due to acute pyelonephritis with possible volume depletion as well Creatinine at admission 3.8, 08/11 3.1 Continue IV fluids (5) PCK (polycystic kidney disease): Code(s): Q61.3 - Polycystic kidney, unspecified Status: Acute (6) Chronic kidney disease, stage 3b: Code(s): N18.32 - Chronic kidney disease, stage 3b Status: Chronic (7) CAD (coronary artery disease): Code(s): I25.10 - Atherosclerotic heart disease of [place] coronary artery without angina pectoris Status: Acute Assessment and Plan: Chest discomfort overnight likely musculoskeletal EKG, troponin, telemetry unremarkable Continue home regimen Continue to monitor (8) Anemia: Code(s): D64.9 - Anemia, unspecified Status: Acute Assessment and Plan: Likely due to chronic kidney disease as well as acute hematuria Continue to monitor (9) Tobacco use: Code(s): Z72.0 - Tobacco use Status: Acute Assessment and Plan: Nicotine patch ordered Subjective Date/time seen: 08/12/22 11:18 Interval history: 08/12/2022 interval history: 42-year-old gentleman admitted 08/10 with hematuria and acute pyelonephritis. blood and urine culture no growth so far, Recent [place] with stent on dual antiplatelet therapy. patient Hgb remains stable. on Had some chest discomfort overnight with negative EKG and troponin x1. No issues on telemetry. States it does not feel like his heart attack but more like ?a pulled muscle?. No associated symptoms. Worse with movement. Mild. Appetite fair. No abdominal pain or change in stools. No shortness of breath. No weakness or numbness. No other abnormal bleeding. Review of Systems Review of Systems: All systems reviewed & are unremarkable except as noted in HPI and below Exam Narrative: Patient is comfortable, NAD HEENT: eyes are clear and none icteric LUNGS: Normal respiratory effort ABD: Distended Lower extremities: no edema SKIN: nonjaundiced Neuro: grossly intact. Objective Data Vital Signs Vital Signs: Vital Signs - 24 hr 08/11/22 12:00 08/11/22 12:55 08/11/22 12:00 Temperature 98.0 F 97.4 F L Pulse Rate 76 72 78 Respiratory Rate 16 Blood Pressure 118/62 133/77 Pulse Oximetry 99 100 Oxygen Delivery 08/11/22 16:00 08/11/22 17:58 08/11/22 16:00 Temperature 98.1 F Pulse Rate 74 85 72 Respiratory Rate 16 Blo
--- NOTE | 2022-08-12 11:31 | P.PNNP_ITS ---
Progress Note: A&P Assessment and Plan (1) CARLOS (acute kidney injury): Code(s): N17.9 - Acute kidney failure, unspecified Status: Acute Assessment and Plan: * improvement noted * multifactorial: * suspected pyelonephritis/infection * hematoma in kidney * relative hypotension * prerenal factors * evaluation to date: * CT of A/P results noted * urine eosinophils negative * CPK okay * urine electrolytes suggest prerenal azotemia * improvement noted with current interventions * follow repeat labs and UOP (2) Chronic kidney disease, stage 3b: Code(s): N18.32 - Chronic kidney disease, stage 3b Status: Chronic Assessment and Plan: * baseline creatinine was running ~ 2.3 - 2.7mg/dl in the last year (2021) * however, more recently (last few months), creatinine was higher at 2.9mg/dl * element of CKD progression versus current issues playing a role?? * related to recent findings of CAD?? * CKD secondary to polycystic kidney disease (3) Acute pyelonephritis: Code(s): N10 - Acute pyelonephritis Status: Acute Assessment and Plan: * suspected based on history and testing on admission * follow culture data * on antibiotics * pain control * IVFs as tolerated but reduce rate (4) CAD (coronary artery disease): Code(s): I25.10 - Atherosclerotic heart disease of [place] coronary artery without angina pectoris Status: Acute Assessment and Plan: * recent STEMI with stenting * on ASA and brilinta (5) Hypertension: Code(s): I10 - Essential (primary) hypertension Status: Chronic Assessment and Plan: * well controlled at this time * follow trend of hemodynamics (6) Anemia: Code(s): D64.9 - Anemia, unspecified Status: Acute Assessment and Plan: * likely related to CKD and issues with hematuria * however, recent need for blood thinners (due to STEMI) may be playing a role as well * follow trend of H/H Will continue to follow. Subjective Date/time seen: 08/12/22 11:31 Interval history: Follow-up for acute kidney injury on chronic kidney disease and known history of polycystic kidney disease. Overall, seems to be doing better in general although did have some chest discomfort overnight that he thinks was more related to a pulled muscle -- eating and drinking okay; renal function/creatinine appears to be doing better as well; no apparent distress noted; at bedside and we discussed the situation. Exam Narrative: General: WD/WN male in NAD Heart: normal S1 and S2; no rub Lungs: clear to auscultation Abdomen: soft, nontender, nondistended, positive bowel sounds Extremities: no cyanosis or clubbing; no edema Skin: warm and dry Objective Data Vital Signs Vital Signs: Vital Signs Temp Pulse Resp BP Pulse Ox O2 Del Method 08/12/22 11:00 78 08/12/22 08:00 Room Air 08/12/22 08:51 96 08/12/22 08:00 77 08/12/22 08:01 98.2 F 87 16 121/70 98 08/12/22 04:00 85 08/12/22 03:55 99.3 F 83 18 132/73 99 08/12/22 00:00 74 08/11/22 23:46 98.6 F 87 18 133/70 100 08/11/22 20:00 Room Air 08/11/22 20:00 84 08/11/22 20:00 98.2 F 80 17 129/75 100
--- NOTE | 2022-08-12 11:31 | PM.PNNEP ---
Progress Note: A&P Assessment and Plan (1) CARLOS (acute kidney injury): Code(s): N17.9 - Acute kidney failure, unspecified Status: Acute Assessment and Plan: improvement noted multifactorial: suspected pyelonephritis/infection hematoma in kidney relative hypotension prerenal factors evaluation to date: CT of A/P results noted urine eosinophils negative CPK okay urine electrolytes suggest prerenal azotemia improvement noted with current interventions follow repeat labs and UOP (2) Chronic kidney disease, stage 3b: Code(s): N18.32 - Chronic kidney disease, stage 3b Status: Chronic Assessment and Plan: baseline creatinine was running ~ 2.3 - 2.7mg/dl in the last year (2021) however, more recently (last few months), creatinine was higher at 2.9mg/dl element of CKD progression versus current issues playing a role?? related to recent findings of CAD?? CKD secondary to polycystic kidney disease (3) Acute pyelonephritis: Code(s): N10 - Acute pyelonephritis Status: Acute Assessment and Plan: suspected based on history and testing on admission follow culture data on antibiotics pain control IVFs as tolerated but reduce rate (4) CAD (coronary artery disease): Code(s): I25.10 - Atherosclerotic heart disease of [place] coronary artery without angina pectoris Status: Acute Assessment and Plan: recent STEMI with stenting on ASA and brilinta (5) Hypertension: Code(s): I10 - Essential (primary) hypertension Status: Chronic Assessment and Plan: well controlled at this time follow trend of hemodynamics (6) Anemia: Code(s): D64.9 - Anemia, unspecified Status: Acute Assessment and Plan: likely related to CKD and issues with hematuria however, recent need for blood thinners (due to STEMI) may be playing a role as well follow trend of H/H Will continue to follow. Subjective Date/time seen: 08/12/22 11:31 Interval history: Follow-up for acute kidney injury on chronic kidney disease and known history of polycystic kidney disease. Overall, seems to be doing better in general although did have some chest discomfort overnight that he thinks was more related to a pulled muscle -- eating and drinking okay; renal function/creatinine appears to be doing better as well; no apparent distress noted; at bedside and we discussed the situation. Exam Narrative: General: WD/WN male in NAD Heart: normal S1 and S2; no rub Lungs: clear to auscultation Abdomen: soft, nontender, nondistended, positive bowel sounds Extremities: no cyanosis or clubbing; no edema Skin: warm and dry Objective Data Vital Signs Vital Signs: Vital Signs Temp Pulse Resp BP Pulse Ox O2 Del Method 08/12/22 11:00 78 08/12/22 08:00 Room Air 08/12/22 08:51 96 08/12/22 08:00 77 08/12/22 08:01 98.2 F 87 16 121/70 98 08/12/22 04:00 85 08/12/22 03:55 99.3 F 83 18 132/73 99 08/12/22 00:00 74 08/11/22 23:46 98.6 F 87 18 133/70 100 08/11/22 20:00 Room Air 08/11/22 20:00 84 08/11/22 20:00 98.2 F 80 17 129/75 100 08/11/22 16:00 72 08/11/22 17:58 85 08/11/22 16:00 98.1 F 74 16 126/79 100 Intake/Output Intake/Output: Intake & Output 08/09/22 08/10/22 08/11/22 08/12/22 23:59 23:59 23:59 23:59 Intake Total 2470 3550 1900 Output Total 450 Balance 2020 3550 1900 Meds/Results Medications: Active Medications Generic Name Dose Route Start Last Admin Trade Name Nicholasq PRN Reason Stop Dose Admin Acetaminophen 650 mg 08/10/22 11:28 08/12/22 11:31 Acetaminophen 325 Mg Tablet PO 650 mg Q4H PRN Administration Mild Pain (1-3) or Fever Aspirin 81 mg 08/11/22 09:00 08/12/22 08:50 Aspirin 81 Mg Chewable Tablet PO 81 mg DAILY GRETTA Administration
[2022-08-12] MEDS: ATORVASTATIN 40 MG TABLET 80 MG PO (20:40)
[2022-08-13] VITALS (9 sets, daily range): BP systolic 129–134; BP diastolic 62–78; PULSE 80–128; RESP 18–20; TEMP 36.8–37.2; O2SAT 96–100
[2022-08-13] MEDS: oxyCODONE HCL (*CRX) 5 MG TAB IR PO ×2 (01:40→22:45)
[2022-08-13 05:29] LABS: Hematocrit 27.8 % (42.0-52.0); Hemoglobin 8.8 g/dL (14.0-18.0); Mean Corpuscular HGB Conc 31.7 g/dl (32-36); Mean Corpuscular Hemoglobin 30.1 pg (26-34); Mean Corpuscular Volume 95.2 fl (80-100); Mean Platelet Volume 10.6 fl (7.4-10.4); Platelet Count Result 420 k/mm3 (150-375); Red Blood Count 2.92 M/mm3 (4.6-6.20); Red Cell Distribution Width 14.3 % (11.5-14.5); White Blood Count 10.2 K/mm3 (4.5-10.0)
[2022-08-13 05:49] LABS: Albumin Level 2.9 g/dL (3.5-5.1); Anion Gap 5 mmol/L (8-16); Blood Urea Nitrogen 25 mg/dL (9-20); Calcium 8.2 mg/dL (8.4-10.2); Carbon Dioxide 24 mmol/L (22-30); Chloride 110 mmol/L (98-107); Estimated CRCL calculation 45 ml/min; Estimated Glomerular Filt Rate 29; Glucose 102 mg/dL (65-110); Magnesium 1.9 mg/dL (1.6-2.3); Phosphorus 4.5 mg/dL (2.5-4.5); Potassium 3.9 mmol/L (3.4-5.0); Sodium 139 mmol/L (137-145)
[2022-08-13] MEDS: CHOLECALCIFEROL 1,000 UNITS TABLET 5000 UNITS PO (08:27)
[2022-08-13] MEDS: TICAGRELOR 90 MG TABLET PO ×2 (08:27→20:56)
[2022-08-13] MEDS: EZETIMIBE 10 MG TABLET PO (08:27)
[2022-08-13] MEDS: METOPROLOL SUCCINATE EXT REL 12.5 MG TABCR PO ×2 (08:27→16:07)
[2022-08-13] MEDS: ASPIRIN 81 MG CHEWABLE TABLET PO (08:27)
[2022-08-13] MEDS: NICOTINE (*PBKC) 21 MG PATCH 1 PATCH TRANSDERM (08:27)
[2022-08-13] MEDS: oxyCODONE HCL (*CRX) 2.5 MG TAB IR PO ×2 (08:41→16:07)
--- NOTE | 2022-08-13 10:12 | P.PN_ITS ---
Progress Note: A&P Assessment and Plan (1) Acute pyelonephritis: Code(s): N10 - Acute pyelonephritis Status: Acute Assessment and Plan: * 08/03 a day 2 ceftriaxone * Culture and sensitivity pending 08/13/2022 interval history: 42-year-old gentleman admitted 08/10 with hematuria and acute pyelonephritis. blood and urine culture no growth so far, Recent [place] with stent on dual antiplatelet therapy. patient Hgb is slowly trednig down, will do renal US to assess for hematoma. his is present in the room. today patient c/o low back pain,will start cyclobenzaprine 5 mg q.8 p.r.n. will monitor on 08/11 Had some chest discomfort overnight with negative EKG and troponin x1. No issues on telemetry. States it does not feel like his heart attack but more like ?a pulled muscle?. No associated symptoms. Worse with movement. Mild. Appetite fair. No abdominal pain or change in stools. No shortness of breath. No weakness or numbness. No other abnormal bleeding. (2) Hematuria: Code(s): R31.9 - Hematuria, unspecified Status: Acute Assessment and Plan: * Likely due to acute pyelonephritis, polycystic kidney disease, dual antiplatelet therapy * Continue DAPT due to recent coronary stent * Continue IV fluids (3) Closed hematoma of left kidney: Qualifiers: Encounter type: sequela Qualified Code(s): S37.012S - Minor contusion of left kidney, sequela Code(s): S37.012A - Minor contusion of left kidney, initial encounter Status: Acute Assessment and Plan: * Continue IV fluids (4) CARLOS (acute kidney injury): Code(s): N17.9 - Acute kidney failure, unspecified Status: Acute Assessment and Plan: * Likely due to acute pyelonephritis with possible volume depletion as well * Creatinine at admission 3.8, 08/11 3.1 * Continue IV fluids (5) PCK (polycystic kidney disease): Code(s): Q61.3 - Polycystic kidney, unspecified Status: Acute (6) Chronic kidney disease, stage 3b: Code(s): N18.32 - Chronic kidney disease, stage 3b Status: Chronic (7) CAD (coronary artery disease): Code(s): I25.10 - Atherosclerotic heart disease of [place] coronary artery without angina pectoris Status: Acute Assessment and Plan: * Chest discomfort overnight likely musculoskeletal * EKG, troponin, telemetry unremarkable * Continue home regimen * Continue to monitor (8) Anemia: Code(s): D64.9 - Anemia, unspecified Status: Acute Assessment and Plan: * Likely due to chronic kidney disease as well as acute hematuria * Continue to monitor (9) Tobacco use: Code(s): Z72.0 - Tobacco use Status: Acute Assessment and Plan: * Nicotine patch ordered Subjective Date/time seen: 08/13/22 10:12 Interval history: 08/13/2022 interval history: 42-year-old gentleman admitted 08/10 with hematuria and acute pyelonephritis. blood and urine culture no growth so far, Recent [place] with stent on dual antiplatelet therapy. patient Hgb is slowly trednig down, will do renal US to assess for hematoma. his is present in the room. today patient c/o low back pain,will start cyclobenzaprine 5 mg q.8 p.r.n. will monitor on 08/11 Had some chest discomfort overnight with negative EKG and troponin x1. No issues on telemetry. States it does not feel like his heart attack but more like ?a pulled muscle?. No associated symptoms. Worse with movement. Mild. Appetite fair. No abdominal pain or change in stools. No shortness of breath. No weakness or numbness. No other
--- NOTE | 2022-08-13 10:12 | WPDPN ---
Progress Note: A&P Assessment and Plan (1) Acute pyelonephritis: Code(s): N10 - Acute pyelonephritis Status: Acute Assessment and Plan: 08/03 a day 2 ceftriaxone Culture and sensitivity pending 08/13/2022 interval history: 42-year-old gentleman admitted 08/10 with hematuria and acute pyelonephritis. blood and urine culture no growth so far, Recent [place] with stent on dual antiplatelet therapy. patient Hgb is slowly trednig down, will do renal US to assess for hematoma. his is present in the room. today patient c/o low back pain,will start cyclobenzaprine 5 mg q.8 p.r.n. will monitor on 08/11 Had some chest discomfort overnight with negative EKG and troponin x1. No issues on telemetry. States it does not feel like his heart attack but more like ?a pulled muscle?. No associated symptoms. Worse with movement. Mild. Appetite fair. No abdominal pain or change in stools. No shortness of breath. No weakness or numbness. No other abnormal bleeding. (2) Hematuria: Code(s): R31.9 - Hematuria, unspecified Status: Acute Assessment and Plan: Likely due to acute pyelonephritis, polycystic kidney disease, dual antiplatelet therapy Continue DAPT due to recent coronary stent Continue IV fluids (3) Closed hematoma of left kidney: Qualifiers: Encounter type: sequela Qualified Code(s): S37.012S - Minor contusion of left kidney, sequela Code(s): S37.012A - Minor contusion of left kidney, initial encounter Status: Acute Assessment and Plan: Continue IV fluids (4) CARLOS (acute kidney injury): Code(s): N17.9 - Acute kidney failure, unspecified Status: Acute Assessment and Plan: Likely due to acute pyelonephritis with possible volume depletion as well Creatinine at admission 3.8, 08/11 3.1 Continue IV fluids (5) PCK (polycystic kidney disease): Code(s): Q61.3 - Polycystic kidney, unspecified Status: Acute (6) Chronic kidney disease, stage 3b: Code(s): N18.32 - Chronic kidney disease, stage 3b Status: Chronic (7) CAD (coronary artery disease): Code(s): I25.10 - Atherosclerotic heart disease of [place] coronary artery without angina pectoris Status: Acute Assessment and Plan: Chest discomfort overnight likely musculoskeletal EKG, troponin, telemetry unremarkable Continue home regimen Continue to monitor (8) Anemia: Code(s): D64.9 - Anemia, unspecified Status: Acute Assessment and Plan: Likely due to chronic kidney disease as well as acute hematuria Continue to monitor (9) Tobacco use: Code(s): Z72.0 - Tobacco use Status: Acute Assessment and Plan: Nicotine patch ordered Subjective Date/time seen: 08/13/22 10:12 Interval history: 08/13/2022 interval history: 42-year-old gentleman admitted 08/10 with hematuria and acute pyelonephritis. blood and urine culture no growth so far, Recent [place] with stent on dual antiplatelet therapy. patient Hgb is slowly trednig down, will do renal US to assess for hematoma. his is present in the room. today patient c/o low back pain,will start cyclobenzaprine 5 mg q.8 p.r.n. will monitor on 08/11 Had some chest discomfort overnight with negative EKG and troponin x1. No issues on telemetry. States it does not feel like his heart attack but more like ?a pulled muscle?. No associated symptoms. Worse with movement. Mild. Appetite fair. No abdominal pain or change in stools. No shortness of breath. No weakness or numbness. No other abnormal bleeding. Review of Systems Review of Systems: All systems reviewed & are unremarkable except as noted in HPI and below Exam Narrative: Patient is comfortable, NAD HEENT: eyes are clear and none icteric LUNGS: Normal respiratory effort ABD: Distended Lower extremities: no edema SKIN: nonjaundiced Neuro: grossly intact. Objective Data Vital Signs Vital Si
--- NOTE | 2022-08-13 11:05 | P.PNNP_ITS ---
Progress Note: A&P Assessment and Plan (1) CARLOS (acute kidney injury): Code(s): N17.9 - Acute kidney failure, unspecified Status: Acute Assessment and Plan: * slow improvement noted * multifactorial: * suspected pyelonephritis/infection * hematoma in kidney * relative hypotension * prerenal factors * evaluation to date: * CT of A/P results noted * urine eosinophils negative * CPK okay * urine electrolytes suggest prerenal azotemia * follow repeat labs and UOP (2) Chronic kidney disease, stage 3b: Code(s): N18.32 - Chronic kidney disease, stage 3b Status: Chronic Assessment and Plan: * baseline creatinine was running ~ 2.3 - 2.7mg/dl in the last year (2021) * however, more recently (last few months), creatinine was higher at 2.9mg/dl * element of CKD progression versus current issues playing a role?? * related to recent findings of CAD?? * CKD secondary to polycystic kidney disease (3) Acute pyelonephritis: Code(s): N10 - Acute pyelonephritis Status: Acute Assessment and Plan: * suspected based on history and testing on admission * follow culture data - negative to date * on antibiotics - probably okay to d/c * pain control * IVFs as tolerated but wean off (4) CAD (coronary artery disease): Code(s): I25.10 - Atherosclerotic heart disease of [place] coronary artery without angina pectoris Status: Acute Assessment and Plan: * recent STEMI with stenting * on ASA and brilinta (5) Hypertension: Code(s): I10 - Essential (primary) hypertension Status: Chronic Assessment and Plan: * well controlled at this time * follow trend of hemodynamics (6) Anemia: Code(s): D64.9 - Anemia, unspecified Status: Acute Assessment and Plan: * likely related to CKD and issues with hematuria * however, recent need for blood thinners (due to STEMI) may be playing a role as well * follow trend of H/H Will continue to follow. Subjective Date/time seen: 08/13/22 11:05 Interval history: Follow-up for acute kidney injury on chronic kidney disease and known history of polycystic kidney disease. No new issues or problems to report; still has on/off flank pain but seems to be doing better overall since admission; no issues/concerns overnight or earlier this morning; about leave for radiology for repeat renal ultrasound. Exam Narrative: General: WD/WN male in NAD Heart: normal S1 and S2; no rub Lungs: clear to auscultation Abdomen: soft, nontender, nondistended, positive bowel sounds Extremities: no cyanosis or clubbing; no edema Skin: warm and intact Objective Data Vital Signs Vital Signs: Vital Signs Temp Pulse Resp BP Pulse Ox O2 Del Method 08/13/22 10:00 98.6 F 88 18 129/71 97 08/13/22 04:00 80 08/13/22 00:00 84 08/13/22 03:44 98.2 F 84 18 134/78 98 08/13/22 03:41 98.2 F 84 18 134/78 98 08/12/22 23:41 99.4 F 88 20 128/79 96 08/12/22 21:08 97.7 F 86 20 146/83 H 100 08/12/22 20:00 97.7 F 86 20 146/83 H 100 08/12/22 20:00 81 08/12/22 20:00 Room Air 08/12/22 16:00 73 08/12/22 16:00 98.4 F 79 18 125/82 99 08/12/22 16:17 83 05/2
--- NOTE | 2022-08-13 11:05 | PM.PNNEP ---
Progress Note: A&P Assessment and Plan (1) CARLOS (acute kidney injury): Code(s): N17.9 - Acute kidney failure, unspecified Status: Acute Assessment and Plan: slow improvement noted multifactorial: suspected pyelonephritis/infection hematoma in kidney relative hypotension prerenal factors evaluation to date: CT of A/P results noted urine eosinophils negative CPK okay urine electrolytes suggest prerenal azotemia follow repeat labs and UOP (2) Chronic kidney disease, stage 3b: Code(s): N18.32 - Chronic kidney disease, stage 3b Status: Chronic Assessment and Plan: baseline creatinine was running ~ 2.3 - 2.7mg/dl in the last year (2021) however, more recently (last few months), creatinine was higher at 2.9mg/dl element of CKD progression versus current issues playing a role?? related to recent findings of CAD?? CKD secondary to polycystic kidney disease (3) Acute pyelonephritis: Code(s): N10 - Acute pyelonephritis Status: Acute Assessment and Plan: suspected based on history and testing on admission follow culture data - negative to date on antibiotics - probably okay to d/c pain control IVFs as tolerated but wean off (4) CAD (coronary artery disease): Code(s): I25.10 - Atherosclerotic heart disease of [place] coronary artery without angina pectoris Status: Acute Assessment and Plan: recent STEMI with stenting on ASA and brilinta (5) Hypertension: Code(s): I10 - Essential (primary) hypertension Status: Chronic Assessment and Plan: well controlled at this time follow trend of hemodynamics (6) Anemia: Code(s): D64.9 - Anemia, unspecified Status: Acute Assessment and Plan: likely related to CKD and issues with hematuria however, recent need for blood thinners (due to STEMI) may be playing a role as well follow trend of H/H Will continue to follow. Subjective Date/time seen: 08/13/22 11:05 Interval history: Follow-up for acute kidney injury on chronic kidney disease and known history of polycystic kidney disease. No new issues or problems to report; still has on/off flank pain but seems to be doing better overall since admission; no issues/concerns overnight or earlier this morning; about leave for radiology for repeat renal ultrasound. Exam Narrative: General: WD/WN male in NAD Heart: normal S1 and S2; no rub Lungs: clear to auscultation Abdomen: soft, nontender, nondistended, positive bowel sounds Extremities: no cyanosis or clubbing; no edema Skin: warm and intact Objective Data Vital Signs Vital Signs: Vital Signs Temp Pulse Resp BP Pulse Ox O2 Del Method 08/13/22 10:00 98.6 F 88 18 129/71 97 08/13/22 04:00 80 08/13/22 00:00 84 08/13/22 03:44 98.2 F 84 18 134/78 98 08/13/22 03:41 98.2 F 84 18 134/78 98 08/12/22 23:41 99.4 F 88 20 128/79 96 08/12/22 21:08 97.7 F 86 20 146/83 H 100 08/12/22 20:00 97.7 F 86 20 146/83 H 100 08/12/22 20:00 81 08/12/22 20:00 Room Air 08/12/22 16:00 73 08/12/22 16:00 98.4 F 79 18 125/82 99 08/12/22 16:17 83 08/12/22 14:01 98.3 F 79 16 119/79 99 Intake/Output Intake/Output: Intake & Output 08/10/22 08/11/22 08/12/22 08/13/22 23:59 23:59 23:59 23:59 Intake Total 2470 3550 3750 610 Output Total 450 Balance 2019 3550 3750 610 Meds/Results Medications: Active Medications Generic Name Dose Route Start Last Admin Trade Name Freq PRN Reason Stop Dose Admin Acetaminophen 650 mg 08/10/22 11:28 08/12/22 16:16 Acetaminophen 325 Mg Tablet PO 650 mg Q4H PRN Administration Mild Pain (1-3) or Fever Aspirin 81 mg 08/11/22 09:00 08/13/22 08:27 Aspirin 81 Mg Chewable Tablet PO 81 mg DAILY GRETTA Administration Atorvastatin Calcium 80 mg 08/10/22 21:00 08/12
[2022-08-13] MEDS: SODIUM CHLORIDE 0.9% IV 1,000 ML 50 ML IV CONT (16:06)
[2022-08-13] MEDS: ATORVASTATIN 40 MG TABLET 80 MG PO (20:56)
[2022-08-14] VITALS: BP 121/72; PULSE 87; PULSE 92; RESP 18; TEMP 36.7; O2SAT 97
[2022-08-14 03:55] VITALS: BP 127/77; PULSE 89; RESP 20; TEMP 37.1; O2SAT 96
[2022-08-14 04:00] VITALS: PULSE 86
[2022-08-14 05:32] LABS: Hematocrit 26.8 % (42.0-52.0); Hemoglobin 8.4 g/dL (14.0-18.0); Mean Corpuscular HGB Conc 31.3 g/dl (32-36); Mean Corpuscular Hemoglobin 30.1 pg (26-34); Mean Corpuscular Volume 96.1 fl (80-100); Mean Platelet Volume 10.5 fl (7.4-10.4); Platelet Count Result 449 k/mm3 (150-375); Red Blood Count 2.79 M/mm3 (4.6-6.20); Red Cell Distribution Width 14.5 % (11.5-14.5); White Blood Count 9.7 K/mm3 (4.5-10.0)
[2022-08-14 05:46] LABS: Albumin Level 2.9 g/dL (3.5-5.1); Anion Gap 6 mmol/L (8-16); Blood Urea Nitrogen 22 mg/dL (9-20); Calcium 8.2 mg/dL (8.4-10.2); Carbon Dioxide 24 mmol/L (22-30); Chloride 110 mmol/L (98-107); Estimated CRCL calculation 47 ml/min; Estimated Glomerular Filt Rate 30; Glucose 100 mg/dL (65-110); Magnesium 1.8 mg/dL (1.6-2.3); Potassium 3.8 mmol/L (3.4-5.0); Sodium 140 mmol/L (137-145)
[2022-08-14] MEDS: ASPIRIN 81 MG CHEWABLE TABLET PO (07:58)
[2022-08-14] MEDS: CEFDINIR 300 MG CAPSULE PO (07:58)
[2022-08-14] MEDS: CHOLECALCIFEROL 1,000 UNITS TABLET 5000 UNITS PO (07:58)
[2022-08-14 07:59] VITALS: PULSE 93
[2022-08-14] MEDS: METOPROLOL SUCCINATE EXT REL 12.5 MG TABCR PO (07:59)
[2022-08-14] MEDS: NICOTINE (*PBKC) 21 MG PATCH 1 PATCH TRANSDERM (07:59)
[2022-08-14] MEDS: EZETIMIBE 10 MG TABLET PO (07:59)
[2022-08-14 08:00] VITALS: BP 128/68; PULSE 84; PULSE 95; RESP 20; TEMP 37.1; O2SAT 97
[2022-08-14] MEDS: TICAGRELOR 90 MG TABLET PO (08:00)
[2022-08-14 12:00] VITALS: BP 130/72; PULSE 82; PULSE 85; RESP 19; TEMP 36.5; O2SAT 98
--- NOTE | 2022-08-14 12:00 | P.PNNP_ITS ---
Progress Note: A&P Assessment and Plan (1) CARLOS (acute kidney injury): Code(s): N17.9 - Acute kidney failure, unspecified Status: Acute Assessment and Plan: * slow improvement noted * multifactorial: * suspected pyelonephritis/infection * hematoma in kidney * relative hypotension * prerenal factors * evaluation to date: * CT of A/P results noted * urine eosinophils negative * CPK okay * urine electrolytes suggest prerenal azotemia * follow repeat labs and UOP (2) Chronic kidney disease, stage 3b: Code(s): N18.32 - Chronic kidney disease, stage 3b Status: Chronic Assessment and Plan: * baseline creatinine was running ~ 2.3 - 2.7mg/dl in the last year (2021) * however, more recently (last few months), creatinine was higher at 2.9mg/dl * element of CKD progression versus current issues playing a role?? * related to recent findings of CAD?? * CKD secondary to polycystic kidney disease (3) Acute pyelonephritis: Code(s): N10 - Acute pyelonephritis Status: Acute Assessment and Plan: * suspected based on history and testing on admission * follow culture data - negative to date * on antibiotics c * pain control * IVFs weaned off (4) CAD (coronary artery disease): Code(s): I25.10 - Atherosclerotic heart disease of [place] coronary artery without angina pectoris Status: Acute Assessment and Plan: * recent STEMI with stenting * on ASA and brilinta (5) Hypertension: Code(s): I10 - Essential (primary) hypertension Status: Chronic Assessment and Plan: * well controlled at this time * follow trend of hemodynamics (6) Anemia: Code(s): D64.9 - Anemia, unspecified Status: Acute Assessment and Plan: * likely related to CKD and issues with hematuria * however, recent need for blood thinners (due to STEMI) may be playing a role as well * follow trend of H/H Will continue to follow. Subjective Date/time seen: 08/14/22 12:00 Interval history: Follow-up for acute kidney injury on chronic kidney disease and known history of polycystic kidney disease. Continues to do well in general; results of repeat renal ultrasound noted; renal function remains stable if not better with current interventions/therapy; no apparent distress noted. Exam Narrative: General: WD/WN male in NAD Heart: normal S1 and S2; no rub Lungs: clear to auscultation Abdomen: soft, nontender, nondistended, positive bowel sounds Extremities: no cyanosis or clubbing; no edema Skin: no rash or nodules Objective Data Vital Signs Vital Signs: Vital Signs Temp Pulse Resp BP Pulse Ox O2 Del Method 08/14/22 12:00 85 08/14/22 12:00 97.7 F 82 19 130/72 98 08/14/22 08:00 95 08/14/22 08:00 Room Air 08/14/22 08:00 98.7 F 84 20 128/68 97 08/14/22 07:59 93 08/14/22 04:00 86 08/14/22 00:00 87 08/13/22 20:00 87 08/14/22 03:55 98.8 F 89 20 127/77 96 08/14/22 00:00 98.1 F 92 18 121/72 97 08/13/22 20:00 98.9 F 94 20 134/73 100 08/13/22 19:43 Room Air 08/13/22 16:00 98.5 F 80 18 130/62 96 08/13/22 16:00 84 Intake/Output
--- NOTE | 2022-08-14 12:00 | PM.PNNEP ---
Progress Note: A&P Assessment and Plan (1) CARLOS (acute kidney injury): Code(s): N17.9 - Acute kidney failure, unspecified Status: Acute Assessment and Plan: slow improvement noted multifactorial: suspected pyelonephritis/infection hematoma in kidney relative hypotension prerenal factors evaluation to date: CT of A/P results noted urine eosinophils negative CPK okay urine electrolytes suggest prerenal azotemia follow repeat labs and UOP (2) Chronic kidney disease, stage 3b: Code(s): N18.32 - Chronic kidney disease, stage 3b Status: Chronic Assessment and Plan: baseline creatinine was running ~ 2.3 - 2.7mg/dl in the last year (2021) however, more recently (last few months), creatinine was higher at 2.9mg/dl element of CKD progression versus current issues playing a role?? related to recent findings of CAD?? CKD secondary to polycystic kidney disease (3) Acute pyelonephritis: Code(s): N10 - Acute pyelonephritis Status: Acute Assessment and Plan: suspected based on history and testing on admission follow culture data - negative to date on antibiotics c pain control IVFs weaned off (4) CAD (coronary artery disease): Code(s): I25.10 - Atherosclerotic heart disease of [place] coronary artery without angina pectoris Status: Acute Assessment and Plan: recent STEMI with stenting on ASA and brilinta (5) Hypertension: Code(s): I10 - Essential (primary) hypertension Status: Chronic Assessment and Plan: well controlled at this time follow trend of hemodynamics (6) Anemia: Code(s): D64.9 - Anemia, unspecified Status: Acute Assessment and Plan: likely related to CKD and issues with hematuria however, recent need for blood thinners (due to STEMI) may be playing a role as well follow trend of H/H Will continue to follow. Subjective Date/time seen: 08/14/22 12:00 Interval history: Follow-up for acute kidney injury on chronic kidney disease and known history of polycystic kidney disease. Continues to do well in general; results of repeat renal ultrasound noted; renal function remains stable if not better with current interventions/therapy; no apparent distress noted. Exam Narrative: General: WD/WN male in NAD Heart: normal S1 and S2; no rub Lungs: clear to auscultation Abdomen: soft, nontender, nondistended, positive bowel sounds Extremities: no cyanosis or clubbing; no edema Skin: no rash or nodules Objective Data Vital Signs Vital Signs: Vital Signs Temp Pulse Resp BP Pulse Ox O2 Del Method 08/14/22 12:00 85 08/14/22 12:00 97.7 F 82 19 130/72 98 08/14/22 08:00 95 08/14/22 08:00 Room Air 08/14/22 08:00 98.7 F 84 20 128/68 97 08/14/22 07:59 93 08/14/22 04:00 86 08/14/22 00:00 87 08/13/22 20:00 87 08/14/22 03:55 98.8 F 89 20 127/77 96 08/14/22 00:00 98.1 F 92 18 121/72 97 08/13/22 20:00 98.9 F 94 20 134/73 100 08/13/22 19:43 Room Air 08/13/22 16:00 98.5 F 80 18 130/62 96 08/13/22 16:00 84 Intake/Output Intake/Output: Intake & Output 08/11/22 08/12/22 08/13/22 08/14/22 23:59 23:59 23:59 23:59 Intake Total 3550 3750 3054 670 Output Total 3 Balance 3550 3750 3051 670 Meds/Results Medications: Active Medications Generic Name Dose Route Start Last Admin Trade Name Freq PRN Reason Stop Dose Admin Acetaminophen 650 mg 08/10/22 11:28 08/12/22 16:16 Acetaminophen 325 Mg Tablet PO 650 mg Q4H PRN Administration Mild Pain (1-3) or Fever Aspirin 81 mg 08/11/22 09:00 08/14/22 07:58 Aspirin 81 Mg Chewable Tablet PO 81 mg DAILY GRETTA Administration Atorvastatin Calcium 80 mg 08/10/22 21:00 08/13/22 20:56 Atorvastatin 40 Mg Tablet PO 80 mg QHS GRETTA Administration Cefdinir 300
--- NOTE | 2022-08-14 13:15 | PM.DS ---
DS: Admitting Diagnosis Discharge Date 08/14/2022 Admitting Diagnosis Blood in the urine DS: Discharge Diagnosis Discharge Diagnosis (1) Acute pyelonephritis: Code(s): N10 - Acute pyelonephritis Status: Acute Assessment and Plan: 08/03 a day 2 ceftriaxone Culture and sensitivity pending 08/13/2022 interval history: 42-year-old gentleman admitted 08/10 with hematuria and acute pyelonephritis. blood and urine culture no growth so far, Recent [place] with stent on dual antiplatelet therapy. patient Hgb is slowly trednig down, will do renal US to assess for hematoma. his is present in the room. today patient c/o low back pain,will start cyclobenzaprine 5 mg q.8 p.r.n. will monitor on 08/11 Had some chest discomfort overnight with negative EKG and troponin x1. No issues on telemetry. States it does not feel like his heart attack but more like ?a pulled muscle?. No associated symptoms. Worse with movement. Mild. Appetite fair. No abdominal pain or change in stools. No shortness of breath. No weakness or numbness. No other abnormal bleeding. (2) Hematuria: Code(s): R31.9 - Hematuria, unspecified Status: Acute Assessment and Plan: Likely due to acute pyelonephritis, polycystic kidney disease, dual antiplatelet therapy Continue DAPT due to recent coronary stent Continue IV fluids (3) Closed hematoma of left kidney: Qualifiers: Encounter type: sequela Qualified Code(s): S37.012S - Minor contusion of left kidney, sequela Code(s): S37.012A - Minor contusion of left kidney, initial encounter Status: Acute Assessment and Plan: Continue IV fluids (4) CARLOS (acute kidney injury): Code(s): N17.9 - Acute kidney failure, unspecified Status: Acute Assessment and Plan: Likely due to acute pyelonephritis with possible volume depletion as well Creatinine at admission 3.8, 08/11 3.1 Continue IV fluids (5) PCK (polycystic kidney disease): Code(s): Q61.3 - Polycystic kidney, unspecified Status: Acute (6) Chronic kidney disease, stage 3b: Code(s): N18.32 - Chronic kidney disease, stage 3b Status: Chronic (7) CAD (coronary artery disease): Code(s): I25.10 - Atherosclerotic heart disease of [place] coronary artery without angina pectoris Status: Acute Assessment and Plan: Chest discomfort overnight likely musculoskeletal EKG, troponin, telemetry unremarkable Continue home regimen Continue to monitor (8) Anemia: Code(s): D64.9 - Anemia, unspecified Status: Acute Assessment and Plan: Likely due to chronic kidney disease as well as acute hematuria Continue to monitor (9) Tobacco use: Code(s): Z72.0 - Tobacco use Status: Acute Assessment and Plan: Nicotine patch ordered DS: Summary Hospital Course Reason for hospitalization: blood in urine Narrative: This is a 42-year-old male patient who has a history of polycystic kidney disease.? The patient had a STEMI the 1st week of July.? He received a stent at that time that sounds like it may have been the LAD.? The patient has been on dual therapy with aspirin and Brilinta.? The patient has been complaining of having left flank pain with hematuria for the last 2 weeks.? He does have chronic kidney disease 3B and has been seeing Dr. Ram.? The patient was seen by his automotive parts interpreter 1 day prior to beginning of his symptoms.? He also has nausea and chills.? He had decreased oral intake.? The patient did take Tylenol but he stated that it did not relieve his discomfort.? He rates his pain a 6-7.? His H&H is 10.4 and 32.7.? Platelets 429.? Patient's creatinine is 3.8 BUN 47 and his GFR is 30.? His urine is turbid 3 blood bout 3+ positive nitrate 2+ bilirubin. abdominal pelvis CT was read as a following?1. Acute hematoma in a calyx of left kidney. 2. Polycystic kidney disease. 3. Mild left para-aortic lymphadenopathy, likely re
[2022-08-16 15:45] LABS: Chloride Rand Ur <20 mmol/L (32-290); Creatinine Random Urine 51 mg/dL (20-320)
== END 2022-08-14 14:10 | disposition home or self-care (01) | DRG 689 ==
LOC: ANHED 11:23 → ANH2MED 12:07
PROVIDERS: Internal Medicine; Internal Medicine Nephrology; Nurse Practitioner; Admitting Provider Family Medicine; Emergency Provider Emergency Medicine; PCP Registered Nurse; Visit Provider Family Medicine
DX: N10 Acute pyelonephritis (principal); I21.3 ST elevation (STEMI) myocardial infarction of unspecified site; D62 Acute posthemorrhagic anemia; Q61.3 Polycystic kidney, unspecified; S37.012A Minor contusion of left kidney, initial encounter; N17.9 Acute kidney failure, unspecified; R31.9 Hematuria, unspecified; I95.89 Other hypotension; N31.9 Neuromuscular dysfunction of bladder, unspecified; R07.89 Other chest pain; N18.32 Chronic kidney disease, stage 3b; I25.10 Atherosclerotic heart disease of native coronary artery without angina pectoris; D63.1 Anemia in chronic kidney disease; F17.210 Nicotine dependence, cigarettes, uncomplicated; X58.XXXA Exposure to other specified factors, initial encounter; G47.33 Obstructive sleep apnea (adult) (pediatric); Z95.5 Presence of coronary angioplasty implant and graft
CPT/HCPCS: 36415; 74176; 76770; 80053; 80069; 81001; 81050; 82436; 82550; 82570; 83036; 83605; 83690; 83735; 84156; 84300; 84443; 84484; 84540; 85014; 85018; 85025; 85027; 85999; 87040; 87086; 93005; 96361; 96374; 96375; 99285; A9270; J0696; J1170; J2405; J7030